=== PATIENT | female | born 1995 | race Caucasian/White ===

== ENCOUNTER 2017-08-29 23:43 | Emergency (ER) | payer OTHER ==
[2017-08-29 23:58] VITALS: PULSE 86; RESP 16; TEMP 98.1; O2SAT 98
--- NOTE | 2017-08-30 | EDPHY ---
H & P Stated Complaint: Hx of TMJ, dislocated and relocated tonight, now pain on R jaw HPI/ROS: HPI CHIEF COMPLAINT: Jaw pain. HISTORY OF PRESENT ILLNESS: This patient very pleasant 22-year-old female she is otherwise healthy does have attention deficit hyperactivity disorder, she presents emergency room with jaw pain. Patient reports that over the past few months she has had what she thinks is TMJ with some jaw discomfort. And intermittent what sounds like dislocations. Appears that they self reduced. Tonight she was leaning over the refrigerator to get cheese out of the refrigerator and felt her jaw slip for that she immediately had worsening pain at the right TMJ joint. She felt like it relocated by itself. She has pain when she bites down and pain when she fully opens her jaw. The pain was rather severe so she decided come the emergency room with mom for evaluation. Upon arrival here she complains of 6/10 right TMJ pain. No left TMJ pain. She has a normal bite. No malocclusion. The TMJ joint appears to be in appropriate position on exam. Past Medical History: Attention deficit hyperactivity disorder. Past Surgical History: No significant surgical history Social History: Denies daily use drugs alcohol tobacco products. Family History: Noncontributory ROS REVIEW OF SYSTEMS: A comprehensive 10 point review of systems is otherwise negative aside from elements mentioned in the history of present illness. Exam Constitutional appears well nontoxic triage nursing summary reviewed, vital signs reviewed, awake/alert. Eyes normal conjunctivae and sclera, EOMI, PERRLA. HENT oropharynx normal bite. No malocclusion. Mild tenderness palpation over the right TMJ. Left TMJ normal. She is able to open her mouth fully. She does have some mild pain in the right TMJ when she does this. I do not appreciate any malalignment of the TMJ joint on exam. normal inspection, atraumatic, moist mucus membranes, no epistaxis, neck supple/ no meningismus, no raccoon eyes. Respiratory clear to auscultation bilaterally, normal breath sounds, no respiratory distress, no wheezing. Cardiovascular rate normal, regular rhythm, no murmur, no edema, distal pulses normal. Gastrointestinal soft, non-tender, no rebound, no guarding, normal bowel sounds, no distension, no pulsatile mass. Genitourinary no CVA tenderness. Musculoskeletal no midline vertebral tenderness, full range of motion, no calf swelling, no tenderness of extremities, no meningismus, good pulses, neurovascularly intact. Skin pink, warm, & dry, no rash, skin atraumatic. Neurologic awake, alert and oriented x 3, AAOx3, moves all 4 extremities equally, motor intact, sensory intact, CN II-XII intact, normal cerebellar, normal vision, normal speech. Psychiatric normal mood/affect. Heme/Lymph/Immune no lymphadenopathy. Differential Diagnosis: Includes but is not limited to in a particular order TMJ dysfunction, TMJ arthralgia, jaw dislocation relocation, infection Medical Decision Making: Plan for this patient recommend ibuprofen 800 mg here , and [place]. Take-home pack for [place]. Prescription for both. Also close ENT follow-up. They state that her family friends with Dr. Rafael Titus. Will refer them to him. For further management of TMJ. I do recommend soft diet. And try not open her mouth very wide. No hard foods. Return emergency room if there is worsening symptoms questions concerns she understands. Source: Patient - Personal History LMP (Females 10-55): 22-28 Days Ago Current Tetanus/Diphtheria Vaccine: Yes - Medical/Surgical History Hx Asthma: No Hx Chronic Respiratory Disease: No Hx Diabetes: No Hx Cardiac Disease: No Hx Renal Disease: No Hx Cirrhosis: No Hx Alcoholism: No Hx HIV/AIDS: No Hx Splenectomy or Spleen Trauma: No Other PMH: TMJ, tonsillitis, ADHD - Social History Smoking Status: Never smoked Constitutional: Initial Vital Signs Temperature (C) 36.7 C 08/29/17 23:54 Heart Rate 86 08/29/17 23:54 Respiratory Rate 16 08/29/17 23:54 O2 Sat (%) 98 08/29/17 23:54 O2 Delivery Mode Room Air Allergies/Adverse Reactions: No Known Allergies Allergy (Unverified 11/23/09 20:26) Home Medications: Medication Instructions Recorded Adderall 10 mg Tablet 08/29/17 Hydrocodone/APAP 5/325 [[place] 1 - 2 tab PO Q4H PRN #10 tab 08/30/17 5/325] Ibuprofen [Motrin (*)] 800 mg PO Q6-8PRN #10 tab 08/30/17 Departure - Departure Disposition: Home, Routine, Self-Care Clinical Impression: Jaw pain TMJ (dislocation of temporomandibular joint) Qualifiers: Encounter type: initial encounter Qualified Code(s): S03.00XA - Dislocation of jaw, unspecified side, initial encounter Instructions: Temporomandibular Disorder (ED) Additional Instructions: 1.Take ibuprofen for mild pain. 2. [place] few having severe pain. 3. Recommend soft diet. Do not open her mouth extremely wide. And follow up with ENT. Referrals: YONIS PHILLIPS [Other] - As per Instructions Rafael Titus MD [Medical Doctor] - As per Instructions Prescriptions: Hydrocodone/APAP 5/325 [[place] 5/325] 1 - 2 tab PO Q4H PRN #10 tab PRN Reason: Pain, Moderate Ibuprofen [Motrin (*)] 800 mg PO Q6-8PRN #10 tab
[2017-08-30] MEDS ORDERED: IBUPROFEN 800 MG TAB PO ONE (00:11)
[2017-08-30] MEDS ORDERED: HYDROCODONE/APAP 5/325 TAB PO ONE (00:11)
[2017-08-30] MEDS ORDERED: HYDROCOD/APAP 5/325 PREPACK#6 BTL TAKEHOME ONE (00:11)
== END 2017-08-30 00:27 | disposition home or self-care (01) ==
DX: S03.01XA Dislocation of jaw, right side, initial encounter (principal); X58.XXXA Exposure to other specified factors, initial encounter